=== PATIENT | female | born 1995 | race Caucasian/White ===

== ENCOUNTER 2017-06-29 12:56 | Emergency (ER) | payer MEDICAID ==
[2017-06-29 13:22] VITALS: BP 101/63
--- NOTE | 2017-06-29 13:36 | ER Document Report ---
ED Medical Screen (RME) - General Chief Complaint: Suicidal Ideation Stated Complaint: ABDOMINAL PAIN Time Seen by Provider: 06/29/17 13:33 Notes: pt with thoughts of suicide/dying. hx heroin/methadone, schizophrenia. mom unable to get appt. TRAVEL OUTSIDE OF THE [place] IN LAST 30 DAYS: No - Related Data Allergies/Adverse Reactions: prednisone Allergy (Verified 06/29/17 13:23) Past Medical History Pulmonary Medical History: Reports: Hx Asthma - asthma Renal/ Medical History: Denies: Hx Peritoneal Dialysis - Immunizations Hx Diphtheria, Pertussis, Tetanus Vaccination: Yes Physical Exam - Vital signs Vitals: Temp Pulse Resp BP Pulse Ox 98.0 F 72 16 101/63 98 06/29/17 13:19 06/29/17 13:19 06/29/17 13:19 06/29/17 13:19 06/29/17 13:19 Course - Vital Signs Vital signs: Temp Pulse Resp BP Pulse Ox 98.0 F 72 16 101/63 98 06/29/17 13:19 06/29/17 13:19 06/29/17 13:19 06/29/17 13:19 06/29/17 13:19
[2017-06-29 14:12] LABS: ABSOLUTE EOSINOPHILS # (AUTO) 0.1 10^3/uL (0.0-0.6); ABSOLUTE LYMPHOCYTES (AUTO) 1.8 10^3/uL (0.5-4.7); ABSOLUTE MONOCYTES (AUTO) 0.5 10^3/uL (0.1-1.4); ABSOLUTE NEUT (AUTO) 6.4 10^3/uL (1.7-8.2); BASOPHILS % (AUTO) 0.3 % (0-2); EOSINOPHILS % (AUTO) 1.1 % (0-6); HEMATOCRIT 44.3 % (36.0-47.0); HGB HCT DIFFERENCE 0.7; LYMPHOCYTES % (AUTO) 20.7 % (13-45); MEAN CORPUSCULAR HEMOGLOBIN 29.5 pg (27.0-33.4); MEAN CORPUSCULAR HGB CONC 33.9 g/dL (32.0-36.0); MEAN CORPUSCULAR VOLUME 87 fl (80-97); MONOCYTES % (AUTO) 6.1 % (3-13); RED BLOOD COUNT 5.08 10^6/uL (3.72-5.28); RED CELL DISTRIBUTION WIDTH 13.5 % (11.5-14.0); SEGMENTED NEUTROPHILS % (AUTO) 71.8 % (42-78); WHITE BLOOD COUNT 8.9 10^3/uL (4.0-10.5)
[2017-06-29 14:29] LABS: APPEARANCE,URINE SLIGHTLY-CLOUDY; BILIRUBIN,URINE NEGATIVE (NEGATIVE); GLUCOSE, URINE NEGATIVE (NEGATIVE); KETONES,URINE NEGATIVE (NEGATIVE); LEUKOCYTE ESTERASE,URINE TRACE (NEGATIVE); NITRITE,URINE NEGATIVE (NEGATIVE); PROTEIN,URINE NEGATIVE (NEGATIVE); URINE SPECIFIC GRAVITY 1.013; UROBILINOGEN,URINE NEGATIVE mg/dL (<2.0)
[2017-06-29 14:37] LABS: ALANINE AMINOTRANSFERASE 31 U/L (9-52); ALBUMIN 5.2 g/dL (3.5-5.0); ALKALINE PHOSPHATASE 100 U/L (38-126); ANION GAP 12 (5-19); ASPARTATE AMINO TRANSFERASE 22 U/L (14-36); BILIRUBIN,DIRECT 0.4 mg/dL (0.0-0.4); BILIRUBIN,TOTAL 0.5 mg/dL (0.2-1.3); BLOOD UREA NITROGEN 19 mg/dL (7-20); CALCIUM 10.3 mg/dL (8.4-10.2); CARBON DIOXIDE 30 mmol/L (22-30); CHLORIDE 100 mmol/L (98-107); CREATININE RESULT 0.84 mg/dL (0.52-1.25); GLUCOSE 100 mg/dL (75-110); POTASSIUM 4.6 mmol/L (3.6-5.0); SODIUM 141.6 mmol/L (137-145); TOTAL PROTEIN 8.4 g/dL (6.3-8.2)
[2017-06-29 14:40] LABS: ALCOHOL < 10 mg/dL (NONE DETECTED)
[2017-06-29 14:46] LABS: URINE BARBITURATES SCREEN NEGATIVE; URINE METHADONE SCREEN NEGATIVE; URINE OPIATES LOW NEGATIVE; URINE PHENCYCLIDINE SCREEN NEGATIVE
--- NOTE | 2017-06-29 16:04 | ER Document Report ---
ED Psych Disorder / Suicide - General Information source: Patient, Parent - mother is bedside TRAVEL OUTSIDE OF THE [place] IN LAST 30 DAYS: No - HPI Patient complains to provider of: Suicidal ideation Onset: Other Onset was: Gradual Suicide Risk Factors: Depressed, Frightened friends/family, Schizophrenia, Substance abuse - history of heroin and meth, recent discharge from facility in [place] after 3 months Situational problems related to: Daughter - does not have custody of daughter, Other - medications and history of substance abuse Normal mood: No Associated symptoms: Depressed, Flat affect, Restlessness - does not stop shaking/moving her legs Similar symptoms previously: No Recently seen / treated by doctor: Yes <SYEDA MANCERA - Last Filed: 06/29/17 15:50> - General Information source: Patient <MAYA CHILDS Heather - Last Filed: 06/29/17 16:19> - General Chief Complaint: Suicidal Ideation Stated Complaint: ABDOMINAL PAIN Time Seen by Provider: 06/29/17 13:33 - HPI Notes: Patient is a 21 year old female who presents via her mother with concerns of suicidal ideations, and increase in depression. Patient is reportedly a long time drug addict; however, has been sober after spending 3 months in a facility in [place]. Patient also reports she is diagnosed with Schizophrenia. Patient herself denies suicidal ideations and states she is depressed and would rather be then feel this way, but would not do anything to cause herself harm. Patient states when she was on the Methadone, she was better. Patient states she is diagnosed with Restless Leg Syndrome and she is in a tremendous amount of pain. Patient reports she was diagnosed with Schizophrenia while inpatient after suffering with a psychotic break at which time she thought she was controlling people with her thoughts, etc. Patient reports her maternal grandmother is diagnosed with Schizophrenia. Mother states the patient was admitted to [facility] for 3 months after a psychotic break. Mother states while in the hospital she was weened off the drugs with Methadone, which was discontinued last week (after taper from 85 mg). Mother states the patient is severely depressed, and she has never seen her in this state. Mother states the patient is on a tremendous amount of prescriptions, and is unable to secure an appointment here because her Medicaid is of [employer]. Mother states she has scheduled an appointment in [place], but it is with a primary account executive healthcare and is not sure what to do. Mother states she called the hospital in [place], and was instructed to come to the local ER. Mother states the patient previously resided in the [place] area, but per her discharge plan was to return to her home and pursue treatment locally. Mother provided the following prescription bottles: Dicyclomine 20 mg tab 1/2 tab PRN BID for stomach cramping Propranolol 10 mg tab tid Invega 6 mg ER 1 tab po qd Omeprazole DR 20 mg cap qam Clonidine 0.1 mg 1 tab q6h prn Cogentin 0.5 mg tab tid Trazadone 100 mg tabs po qhs Gabapentin 400 mg cap tid Melatonin5 mg tab 1 tab qhs Invega IM qmonthly Mother states she has decided to take control of the patient's medications due to concerns for her safety. Mother reports she thinks the patient can be safe at home, but that this is what they discussed when the patient disclosed her depression. Patient is A&O. Mood is depressed, anxious with flat affect. Patient denies suicidal/homicidal ideations, intent, plan, or means. Patient denies A/V H at this time; delusions not noted. Thought processes were organized. Conversational speech was within normal limits for rate, tone, and prosody. Intellectual abilities were estimated within average range. Attention and focus were fair. Insight, judgment, and impulse control were fair. Unspecified Schizophrenia or Other Psychotic Disorder, per history Unspecified Opioid Use Disorder, per history (not currently using) Patient is psychiatrically cleared for discharge. Coordination of care occurred with [facility] who has agreed to see the patient despite the [id number] Medicaid. Patient does not meet criteria for IVC per the [id number] as she denies wanting to by suicide, is not experiencing command hallucinations, etc. Mother reports she is in agreement to monitor the patient , manage her medications, etc. I consulted with Dr. Ngo in regards to the care and management of this patient. (SYEDA MANCERA) - Related Data Allergies/Adverse Reactions: prednisone Allergy (Verified 06/29/17 13:23) Past Medical History - General Information source: Patient, Parent - mother is bedside - Social History Smoking Status: Unknown if Ever Smoked Patient has suicidal ideation: No Patient has homicidal ideation: No Pulmonary Medical History: Reports: Hx Asthma - asthma Renal/ Medical History: Denies: Hx Peritoneal Dialysis - Immunizations Hx Diphtheria, Pertussis, Tetanus Vaccination: Yes <SYEDA MANCERA - Last Filed: 06/29/17 15:50> - Social History Smoking Status: Unknown if Ever Smoked Drug Abuse: Heroin Lives with: Family Family History: Reviewed & Not Pertinent <MAYA CHILDS - Last Filed: 06/29/17 16:19> Review of Systems - Review of Systems Constitutional: Fever, Malaise, Weakness. denies: Chills Cardiovascular: denies: Chest pain, Palpitations Respiratory: denies: Cough, Short of breath Genitourinary: denies: Burning, Dysuria -: Yes All other systems reviewed and negative <MAYA CHILDS - Last Filed: 06/29/17 16:19> Physical Exam - Vital signs Interpretation: Normal - General General appearance: Appears well, Alert - HEENT Head: Normocephalic, Atraumatic Eyes: Normal Pupils: PERRL - Respiratory Respiratory status: No respiratory distress Chest status: Nontender Breath sounds: Normal Chest palpation: Normal - Cardiovascular Rhythm: Regular Heart sounds: Normal auscultation Murmur: No - Abdominal Inspection: Normal Distension: No distension Bowel sounds: Normal Tenderness: Nontender Organomegaly: No organomegaly - Back Back: Normal, Nontender - Extremities General upper extremity: Normal inspection, Nontender, Normal color, Normal ROM , Normal temperature General lower extremity: Normal inspection, Nontender, Normal color, Normal ROM , Normal temperature, Normal weight bearing. No: Wilian's sign - Neurological Neuro grossly intact: Yes Cognition: Normal Orientation: AAOx4 Cyrus Coma Scale Eye Opening: Spontaneous [place] Coma Scale Verbal: Oriented Cyrus Coma Scale Motor: Obeys Commands Cyrus Coma Scale Total: 15 Speech: Normal Motor strength normal: LUE, RUE, LLE, RLE Sensory: Normal - Psychological Associated symptoms: Normal mood, Flat affect - Skin Skin Temperature: Warm Skin Moisture: Dry Skin Color: Normal <MAYA CHILDS - Last Filed: 06/29/17 16:19> - Vital signs Vitals: Temp Pulse Resp BP Pulse Ox 98.0 F 72 16 101/63 98 06/29/17 13:19 06/29/17 13:19 06/29/17 13:19 06/29/17 13:19 06/29/17 13:19 Course - Laboratory Result Diagrams: 06/29/17 13:58 06/29/17 13:58 <YSEDA MANCERA - Last Filed: 06/29/17 15:50> - Laboratory Result Diagrams: 06/29/17 13:58 06/29/17 13:58 <MAYA CHILDS - Last Filed: 06/29/17 16:19> - Re-evaluation Re-evalutation: 06/29/17 16:18 Patient was seen by Syeda from psychiatry. While Syeda with making phone calls to arrange for outpatient follow-up the patient and family apparently eloped from the emergency department. An appointment has been arranged for the patient. We did try to call the patient but there was no answer. If patient returns phone call we will be able to relay her the information about the appointment. (MAYA CHILDS) - Vital Signs Vital signs: Temp Pulse Resp BP Pulse Ox 98.0 F 72 16 101/63 98 06/29/17 13:19 06/29/17 13:19 06/29/17 13:19 06/29/17 13:19 06/29/17 13:19 - Laboratory Laboratory results interpreted by me: 06/29/17 06/29/17 13:58 13:58 Calcium 10.3 H Total Protein 8.4 H Albumin 5.2 H Ur Leukocyte Esterase TRACE H Salicylates < 1.0 L Acetaminophen < 10 L Discharge <SYEDA MANCERA - Last Filed: 06/29/17 15:50> <MAYA CHILDS - Last Filed: 06/29/17 16:19> - Discharge Clinical Impression: Restless leg syndrome Schizophrenia Qualifiers: Schizophrenia type: unspecified Qualified Code(s): F20.9 - Schizophrenia, unspecified Condition: Stable Disposition: ELOPED Additional Instructions: Schizophrenia Schizophrenia is a chemical disorder that affects how the brain functions. The exact cause is unknown, but it tends to run in families. It is NOT caused by emotional trauma. Schizophrenia causes disordered thinking, including unusual beliefs and inability to "process" happenings around the patient. Patients with schizophrenia benefit greatly from medicine. These medicines are called antipsychotics. Never stop the medicine without the doctor 's approval. Counselling may help the patient deal with his disease. Schizophrenics require a very ordered environment. Stresses and sudden changes may bring out symptoms. Drugs and alcohol abuse may become problems. Contact the counselor or crisis line if there are thoughts of suicide or of harming others, or if you become aware of unusual thoughts or beliefs Please follow up with [facility], Thursday 07/05 at noon. They have agreed to assist you based on your income and need. You have been provided a list of resources to include mobile crisis. Please take your medications only as prescribed. Please return if your symptoms worsen. Referrals: [facility] [Provider Group] - 07/05/17 (noon)
--- NOTE | 2017-06-29 20:10 | EKG REPORT ---
SEVERITY:- NORMAL ECG - SINUS RHYTHM : Confirmed by: Celsa Rodriguez 29-Jun-2017 20:09:01
== END 2017-06-29 15:30 | disposition left against medical advice (07) ==
LOC: ER 12:56
DX: G25.81 Restless legs syndrome (principal); F20.9 Schizophrenia, unspecified; F32.9 Major depressive disorder, single episode, unspecified; R50.9 Fever, unspecified; R53.1 Weakness; R53.81 Other malaise
CPT/HCPCS: 36415; 80053; 80307; 81001; 81025; 85025; 93005; 93010; 99281